=== PATIENT | male | born 1950 | race Caucasian/White ===

== ENCOUNTER 2020-03-17 11:00 | Outpatient (RCR) | payer MEDICARE, OTHER, SELFPAY | END 2020-03-17 13:48 | disposition other institution (70) | LOC: HO.PT 11:00 | PROVIDERS: Visit Provider Physical Medicine & Rehabilitation | DX: G81.14 Spastic hemiplegia affecting left nondominant side (principal) | CPT/HCPCS: 97110; 97530 ==

== ENCOUNTER → 2021-09-26 07:53 | Outpatient (RCR) | payer MEDICARE, OTHER, SELFPAY | END | disposition home or self-care (01) | LOC: HO.OT 02-29 09:00 | PROVIDERS: Visit Provider Physical Medicine & Rehabilitation | DX: G81.14 Spastic hemiplegia affecting left nondominant side (principal) | CPT/HCPCS: 97110; 97535 ==

== ENCOUNTER 2023-11-16 08:51 | Emergency (ER) | payer MEDICARE, OTHER, SELFPAY ==
[2023-11-16 08:58] VITALS: BP 130/71; PULSE 90; RESP 19; TEMP 36.6; O2SAT 96; BMI 21.3
[2023-11-16 09:23] LABS: MANUAL DIFF FLAG NO
[2023-11-16 09:25] LABS: Basophils Absolute Auto 0.1 X10*3/uL (0.0-0.2); Basophils Percent Auto 1.1 % (0-2); Eosinophils Absolute Auto 0.2 X10*3/uL (0.0-0.4); Eosinophils Percent Auto 2.3 % (0-4); Hematocrit 38.8 % (42.0-52.0); Hemoglobin 13.3 g/dl (14.0-18.0); Imm Gran Abs Auto 0.01 X10*3/uL (0.00-0.03); Imm Gran Pct Auto 0.2 % (0.0-0.4); Lymphocytes Absolute Auto 2.1 X10*3/uL (1.2-4.9); Lymphocytes Percent Auto 32.6 % (20-40); Mean Corpuscular HGB Conc 34.3 g/dl (31.0-36.0); Mean Corpuscular Hemoglobin 30.5 pg (27.0-33.0); Mean Platelet Volume 10.3 fL (9.4-12.4); Monocytes Absolute Auto 0.6 X10*3/uL (0.1-1.2); Monocytes Percent Auto 9.2 % (2-11); Neutrophils Absolute Auto 3.5 x10*3/uL (2.0-8.3); Neutrophils Percent Auto 54.6 % (45-73); Platelet Count 222 X10*3/uL (160-400); Red Blood Count 4.36 X10*6/uL (4.60-5.80); Red Cell Distribution Width 12.8 % (11.0-16.0); White Blood Count 6.4 X10*3/uL (4.8-10.8)
[2023-11-16 09:52] LABS: COVID-19 Test Negative (Negative); IDNOW Serial# 58CA691E
--- NOTE | 2023-11-16 09:53 | ED.GENADULT ---
HPI - General Adult General Chief complaint: Psychiatric Symptoms Stated complaint: crisis needs to talk to someone Time Seen by Provider: 11/16/23 09:17 Source: patient Mode of arrival: ambulatory Limitations: no limitations History of Present Illness ED Provider: Junior REYNA HPI narrative: 73-year-old male history of CVA with left-sided hemiparesis and uses a cane for ambulation, nicotine dependence presents to the emergency department with anxiety, depression, suicidal thoughts with no particular plan ongoing for the past few weeks. Reports he has been having increasing anxiety and depression due to life stressors, has been having issues with his . He tells me he is addicted to cigarettes in his is trying to have him stop smoking, she does not give him cigarettes when he wants. He reports he has been more angry than usual. Denies hallucinations. Denies medical complaints. Denies chest pain, shortness of breath, nausea, vomiting, abdominal pain, headache, vision changes, fevers, chills, abdominal pain. No homicidal ideation Related Data Allergies Allergy/AdvReac Type Severity Reaction Status Date / Time No Known Allergies Allergy Verified 11/16/23 09:02 [No Known Allergies*] Review of Systems Review of Systems: Yes all other systems are reviewed and are negative PMFSH Past Medical History Attestation statement: The following information was validated with the patient. Source: old records reviewed and nursing notes reviewed Social History Social History Smoked in Last 30 Days: Yes Advance Directives: Yes Advance Directives on File: Yes Advance Directives Date on File: 02/25/20 Do you have a plan to hurt others: No Plan Physical Exam ED Vital Signs: Vital Signs - 24 hr 11/16/23 08:58 11/16/23 10:14 Temperature 98 F 98.3 F Pulse Rate 90 93 Respiratory Rate 19 20 Blood Pressure 130/71 127/67 Pulse Oximetry 96 97 Oxygen Delivery Method Room Air Room Air BMI result Body Mass Index 21.3 VSS Appearance: Alert.? Oriented X3.? No acute distress.? Head: Normocephalic, atraumatic, no step-offs or deformities Eyes: Pupils equal, round and reactive to light.? CVS: Normal heart rate and rhythm.? Pulses normal.? Respiratory: No respiratory distress.? Breath sounds normal.? Abdomen: Soft and nontender.? Skin: Skin warm and dry.? Normal skin color.? Normal skin turgor.? Extremities: No lower extremity edema.? No calf ttp. 5/5 strength to R UE and LE. Left sided UE and LE weakness (baseline) Neuro: Oriented X 3.? No motor deficit.? No sensory deficit. CN 2-12 intact Course Course Course Narrative: 11/16/23--1411--Observation care revealed the patient does not meet medical necessity for hospitalization. Final disposition discussed with the patient who verbalized understanding, cleared by CARE team for discharge home. Patient completed observation care at 1412, total time spent in observation care was 3 hours?and?45 minutes.? Reevaluation(s) Reevaluation #1: CBC unremarkable. Chemistry unremarkable. Ethanol negative. UA and UTOX pending. This time patient to be placed into physician observation to allow more time to be evaluated by care team. At time observation was started patient common cooperative no acute distress will continue to monitor Time: 10:25 Medications Administered Discontinued Medications Generic Name Dose Route Start Last Admin Trade Name Freq PRN Reason Stop Dose Admin Nicotine 14 mg 11/16/23 09:54 11/16/23 10:12 Nicotine 14 Mg Patch.Td24 TRANSDERMA 11/16/23 09:55 14 mg ONCE ONE Administration Medical Decision Making Medical Decision Making [facility] Narrative: 0950 73 year old male presents w/ depression, anxiety and SI w/o specific plan PE - 5/5 strength to R UE and LE. Left sided UE and LE weakness (baseline) Hx and Pe concerning for anxiety, depression, w/ suicidal thoughts. Unlikely metabolic derangements. Plan- labs, urine, ethanol, valentine Differential Diagnosis Differential Diagnoses: The differential diagnosis associated with the presentation includes Hx and Pe concerning for anxiety, depression, w/ suicidal thoughts. Unlikely metabolic derangements. Admission/Observation Consideration of admission/observation: Escalation of care including admission/observation considered Lab Data 11/16/23 09:18 11/16/23 09:18 Labs: Lab Results 11/16/23 11/16/23 Range/Units 09:18 09:51 WBC 6.4 (4.8-10.8) X10*3/uL RBC 4.36 L (4.60-5.80) X10*6/uL Hgb 13.3 L (14.0-18.0) g/dl Hct 38.8 L (42.0-52.0) % MCV 89.0 (80.0-98.0) fL MCH 30.5 (27.0-33.0) pg MCHC 34.3 (31.0-36.0) g/dl RDW 12.8 (11.0-16.0) % Plt Count 222 (160-400) X10*3/uL MPV 10.3 (9.4-12.4) fL Immature Gran % (Auto) 0.2 (0.0-0.4) % Neut % (Auto) 54.6 (45-73) % Lymph % (Auto) 32.6 (20-40) % Park % (Auto) 9.2 (2-11) % Eos % (Auto) 2.3 (0-4) % Baso % (Auto) 1.1 (0-2) % Lymph # (Auto) 2.1 (1.2-4.9) X10*3/uL Park # (Auto) 0.6 (0.1-1.2) X10*3/uL Eos # (Auto) 0.2 (0.0-0.4) X10*3/uL Baso # (Auto) 0.1 (0.0-0.2) X10*3/uL Abs Immat Gran (auto) 0.01 (0.00-0.03) X10*3/uL Absolute Neuts (auto) 3.5 (2.0-8.3) x10*3/uL Absolute Nucleated RBC 0.000 (0.0-0.012) X10*3/uL Nucleated RBC % (auto) 0.0 (0.0-0.2) /100WBC Sodium 140 (135-145) mmol/L Potassium 4.0 (3.3-5.1) mmol/L Chloride 106 (96-108) mmol/L Carbon Dioxide 25 (22-29) mmol/L Anion Gap 13 (12-20) BUN 13 (9-16) mg/dL Creatinine 1.02 (0.5-1.4) mg/dL Estim Creat Clear Calc 57.0 Estimated GFR > 60 Random Glucose 114 (60-115) mg/dL Calcium 9.3 (8.4-10.2) mg/dL Magnesium 1.9 (1.6-2.6) mg/dL Total Bilirubin 0.3 (0.0-1.0) mg/dL AST 22 (5-37) U/L ALT 31 (0-40) U/L Alkaline Phosphatase 74 (39-117) U/L Total Protein 6.9 (6.5-8.0) g/dL Albumin 4.0 (3.5-5.0) g/dL Urine Color Yellow Urine Appearance Clear Urine pH 6.0 (5.0-9.0) Ur Specific [place] 1.015 (1.005-1.025) Urine Protein Negative (Neg-Trace) mg/dL Urine Glucose (UA) Negative (Negative) mg/dL Urine Ketones Negative (Negative) mg/dL Urine Blood Negative (Negative) Urine Nitrite Negative (Negative) Ur Leukocyte Esterase Negative (Negative) Urine Opiates Screen POSITIVE H (Not Detect) Ur Buprenorphine Scrn Not Detected (Not Detect) ng/mL Ur Oxycodone Screen Positive H (Not Detect) ng/mL Urine Methadone Screen Not Detected (Not Detect) ng/mL Urine Fentanyl Screen Not Detected (Not Detect) Ur Barbiturates Screen Not Detected (Not Detect) Ur Phencyclidine Scrn Not Detected (Not Detect) Ur Amphetamines Screen Not Detected (Not Detect) U Benzodiazepines Scrn Not Detected (Not Detect) Urine Cocaine Screen Not Detected (Not Detect) U Marijuana (THC) Screen Not Detected (Not Detect) Ethyl Alcohol < 10 mg/dL COVID-19 (YADIRA) Negative (Negative) COVID-19 Clin Com See Note Critical Care Time Critical Care Time Critical Care Time: No Discharge Plan Discharge Clinical Impression: Depression, Acute anxiety Patient Disposition: Still a Patient Print Language: Scottish
[2023-11-16] MEDS: Nicotine 14 MG PATCH.TD24 TRANSDERMA (10:12)
[2023-11-16 10:14] VITALS: BP 127/67; PULSE 93; RESP 20; TEMP 36.8; O2SAT 97
[2023-11-16 10:21] LABS: Alanine Aminotransferase 31 U/L (0-40); Alkaline Phosphatase 74 U/L (39-117); Anion Gap 13 (12-20); Aspartate Amino Transferase 22 U/L (5-37); Bilirubin Total 0.3 mg/dL (0.0-1.0); Blood Urea Nitrogen 13 mg/dL (9-16); Calcium 9.3 mg/dL (8.4-10.2); Carbon Dioxide 25 mmol/L (22-29); Chloride 106 mmol/L (96-108); Estimated Glomerular Filt Rate > 60; Ethanol < 10 mg/dL; Glucose Random 114 mg/dL (60-115); Magnesium 1.9 mg/dL (1.6-2.6); Sodium 140 mmol/L (135-145); Total Protein 6.9 g/dL (6.5-8.0)
[2023-11-16 10:34] LABS: Appearance Urine Clear; Color Urine Yellow; Glucose Urine UA Negative (Negative); Leukocyte Esterase Urine Negative (Negative); Nitrite Urine Negative (Negative); Specific Gravity - Urine 1.015 (1.005-1.025); Urine Blood Negative (Negative); Urine Ketones Negative (Negative); Urine Protein Negative (Neg-Trace)
[2023-11-16 10:37] LABS: Amphetamine Screen Urine Not Detected (Not Detect); Barbiturates, Urine Not Detected (Not Detect); Benzodiazepines Screen Urine Not Detected (Not Detect); Buprenorphine Scr Not Detected (Not Detect); Cannabinoid Screen Urine Not Detected (Not Detect); Cocaine Screen Urine Not Detected (Not Detect); Fentanyl, urine Not Detected (Not Detect); Methadone Screen, Urine Not Detected (Not Detect); Opiate Screen Urine POSITIVE (Not Detect); Oxycodone Screen Urine Positive (Not Detect); Phencyclidine Screen Urine Not Detected (Not Detect)
--- NOTE | 2023-11-16 10:59 | PC.NURSE ---
patient ambulating independently with own walker from home, left sided deficits from previous stroke. changed into hospital attire, belongings list completed. patient only has own clothes, slippers, and handkerchief. awaiting care team.
--- NOTE | 2023-11-16 12:52 | PC.NURSE ---
multiple family members in to see patient - family did not know patient had left the house.
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
--- NOTE | 2023-11-16 17:16 | PC.NURSE ---
patient/family discharged w/out discharge paperwork and medications prior to discharge
== END 2023-11-16 14:00 | disposition home or self-care (01) ==
PROVIDERS: Physician Assistant; Emergency Provider Emergency Medicine; PCP Nurse Practitioner Family
DX: F32.A Depression, unspecified (principal); F41.9 Anxiety disorder, unspecified; R45.851 Suicidal ideations; I69.354 Hemiplegia and hemiparesis following cerebral infarction affecting left non-dominant side; F17.210 Nicotine dependence, cigarettes, uncomplicated; Z11.52 Encounter for screening for COVID-19
CPT/HCPCS: 80053; 80307; 81003; 83735; 85025; 87635; 99284; 99285; S9485

== ENCOUNTER 2023-12-11 10:59 | Outpatient (REF) | payer MEDICARE, OTHER, SELFPAY ==
--- NOTE | ~2023-12-11 | CT_ITS ---
EXAMINATION: CT CHEST WITHOUT CONTRAST CLINICAL INFORMATION: Scanned in error -no charge COMPARISON: Chest radiograph 10/14/2015 TECHNIQUE: Multidetector volumetric CT imaging of the chest was done. Axial MIP volume rendering provided. Sagittal and coronal reformatted images were obtained. This CT examination was performed using dose optimization techniques as appropriate, variously including the following: *Automated exposure control *Adjustment of mA and/or kV according to patient size (this includes techniques or standardized protocols for targeted exams where dose is matched to indication/reason for exam; i.e. extremities or head) *Use of iterative reconstruction technique DLP: 154 mGy-cm FINDINGS: LUNGS: Small amount of retained secretions along the right lateral wall of the trachea. Central airways are otherwise patent. Linear bibasilar atelectasis/scarring. No focal consolidation. 0.3 cm pulmonary micronodule in the anterior left upper lobe, 5:209. MEDIASTINUM: Heart is normal in size. No significant pericardial effusion. Thoracic aorta is nonaneurysmal with mild atherosclerosis. No mediastinal lymphadenopathy. CORONARY ARTERY CALCIFICATION: Mild coronary artery calcifications. PLEURA: There is no pleural effusion. No pleural mass or thickening. AXILLA: No lymphadenopathy. Mild bilateral gynecomastia. UPPER ABDOMEN: The visualized left kidney is atrophic. OSSEOUS STRUCTURES: No acute or suspicious osseous abnormality. Mild degenerative changes of the visualized spine. CT/CT chest wo IV con IMPRESSION: No acute pulmonary disease. Linear bibasilar atelectasis/scarring. 0.3 cm nodule in the anterior left upper lobe. No follow-up imaging is indicated in low risk patients. In high-risk patients, consider optional follow-up CT chest in 12 months. Fleischner guidelines were followed. Electronically signed by: Arpit Downs MD 03/17/2024 03:54 PM EDT
== END 2023-12-11 11:00 | disposition home or self-care (01) ==
LOC: HO.CT 10:59
PROVIDERS: PCP Nurse Practitioner Family; Visit Provider Psychiatry & Neurology Neurology
DX: Z13.89 Encounter for screening for other disorder (principal)
CPT/HCPCS: 71250

== ENCOUNTER 2023-12-12 11:20 | Outpatient (REF) | payer MEDICARE, OTHER, SELFPAY ==
--- NOTE | ~2023-12-12 | CT_ITS ---
CT head/brain wo IV con CLINICAL INFORMATION: Reason for Exam MULTIPLE CEREBRAL INFARCTIONS COMPARISON: 2017 TECHNIQUE: Department standard protocol. This CT examination was performed using dose optimization techniques as appropriate, variously including the following: *Automated exposure control *Adjustment of mA and/or kV according to patient size (this includes techniques or standardized protocols for targeted exams where dose is matched to indication/reason for exam; i.e. extremities or head) *Use of iterative reconstruction technique DLP: 772 mGy-cm FINDINGS: CEREBRAL HEMISPHERES: Redemonstration of encephalomalacia, atrophy involving the right frontoparietal region distribution of the right MCA sequela of an old infarct in the area involved has slightly progressed since last available CT from 2017. The left hemisphere and infratentorial structures are relatively spared. No CT evidence of new infarct. BRAIN PARENCHYMA: Normal aquino-white matter differentiation. SUBDURAL SPACE: No bleed. BASAL GANGLIA AND PINEAL GLAND: Unremarkable VENTRICLES: Symmetric and normal in size. CEREBELLUM AND BRAINSTEM: No space-occupying mass, hemorrhage or acute infarct. CEREBELLOPONTINE ANGLES: No lesion found. ORBITS: No intraorbital mass. VESSELS: Unremarkable SKULL BASE: Unremarkable INCLUDED SINUSES AT SKULL BASE: Clear SKULL AND SKIN: No fracture or bone lesion found. CT/CT head/brain wo IV con IMPRESSION: 1. Redemonstration of encephalomalacia, atrophy involving the right frontoparietal region distribution of the right MCA sequela of an old infarct, the area involved has slightly progressed since last available CT from 2016. 2. No CT evidence of new infarct. 3. No intracranial bleed.
== END 2023-12-12 11:21 | disposition home or self-care (01) ==
LOC: HO.CT 11:20
PROVIDERS: Visit Provider Psychiatry & Neurology Neurology
DX: I63.9 Cerebral infarction, unspecified (principal)
CPT/HCPCS: 70450

== ENCOUNTER 2025-03-24 12:06 | Outpatient (AMB) | payer BC, SELFPAY ==
--- OUTSIDE RECORDS SUMMARY | 2025-03-05 06:30 | XMS_ITS ---
Author Organization [facility] Address [address] [place] [address] Care Team Providers Care General Agent Name Role Phone Dmitriy THOMAS, Kelly Primary Care Provider Unavail able Kelly Hunt Unavailable [phone] REASON FOR VISIT no ppwrk Encounters Encounter Location Date Provider Diagnosis [address] [address] 03/05/2025 Kelly Hunt Plan Of Treatment No Information Progress Notes * Mike CASTLE EDOB:1950 (74 yo M)Acc No.[id number]:03/05/2025 Progress Notes Patient: Mike ZELAYA Provider: Luis Hunt DPM :1950 A ge:74 Y S ex:Male Date:03/05/2025 Address:[address] [place], [place] [id number] Pcp:Kelly Izaguirre NP Subjective: * Chief Complaints: * 1 . No ppwrk. * Medical History: Objective: * Vitals: Assessment: Plan: * Treatment: * Images: * The named appointment provid er may or may not be the originator of this progress note, and it is not deemed complete until electronically signed by the appointment provider. Sign off status: Pending * Provider: Luis Hunt DPM Date: Generated for Printi ng/Fadanyg/eTransmitting on: 03:33 PM EDT
--- NOTE | 2025-03-24 12:44 | A.OFFVIS_ITS ---
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 He was doing okay with no further seizures. He was having some headaches but has run out of his headache medicine. His blood pressure medicine has been stopped as he was not having high blood pressure anymore. No recent falls. [facility] Medical History (Updated 03/24/25 @ 12:53 by Christina Mc MD) Migraine Seizure disorder Depression Insomnia Intracranial vascular stenosis Left hemiparesis Retroperitoneal fibrosis Multiple cerebral infarctions Social History Advance Directives Date on File: 02/25/20 Review of Systems Const Reports as per HPI Physical Exam Neuro Other: Mental Status: Alert and awake with normal spontaneity and fluency of speech. Affect is flexor. Cranial Nerves: CN II: Visual mariscal full to confrontation, visual acuity intact. CN III, IV, : Pupils equal, round, reactive to light and accommodation. Extraocular movements are normal. CN V: Facial sensation is normal. CN VII: Facial movements symmetrical. CN VIII: Hearing intact to bedside conversation is normal. CN IX, X: Palate elevates symmetrically. CN XI: Shoulder shrug and head turn symmetrical. CN XII: Tongue midline without atrophy or fasciculations. Left hemiparetic gait. Extrapyramidal: Full facial expressions and blinking. No rigidity. Movements are appropriate with no tremor or abnormality. Speech: Normal; no dysarthria or tremor. Assessment & Plan Assessment & Plan (1) Multiple cerebral infarctions: Comment: Meds tried for headache: Depakote CT brain WO at [facility] in November 2023: Large MCA area encephalomalacia, no bleed. EEG in November 2016: slow CT brain WO at [facility] in May 2016: large right MCA infarct CT brain WO at [facility] in September 2015: limited due to motion artifiact MRI brain WO at [facility] in September 2015: acute patchy right post parietal infarct, multiple bilateral chronic small infarcts MRA brain at [facility] in September 2015: limited due to motion artifacts but suggestive of diffuse intracranial atherosclerotic disease NICS at [facility] in September 2015: [place] Ech[place]ogram at [facility] in September 2015: [place]. Code(s): I63.9 - Cerebral infarction, unspecified Category: Medical (2) Seizure disorder: Code(s): G40.909 - Epilepsy, unspecified, not intractable, without status epilepticus Category: Medical (3) Depression: Code(s): F32.A - Depression, unspecified Category: Medical Qualifiers: Depression Type: other depression Qualified Code(s): F32.89 - Other specified depressive episodes (4) Migraine: Code(s): G43.909 - Migraine, unspecified, not intractable, without status migrainosus Category: Medical Qualifiers: Intractability: not intractable Migraine type: without aura Status migrainosus presence: without status migrainosus Qualified Code(s): G43.009 - Migraine without aura, not intractable, without status migrainosus Plan Impression: 1. Multiple cerebral ischemic infarctions 2. Left hemiparesis 3. Vascular dementia 4. Seizure disorder from strokes 5. Migraine without aura 6. Depression Recommendations: 1. Levetiracetam 750 mg 1 twice a day 2. Sertraline 100 mg in the morning 3. Topiramate 50 mg at bedtime for headaches 4. Baby aspirin daily Medications: Refilled topiramate 50 mg PO DAILY 90 tabs 1RF 90 days sertraline 100 mg PO DAILY 90 tabs 1RF levetiracetam 750 mg PO BID 180 tabs 1RF Coding Level of Care Code Est Pt Level 4 (06129) Diagnoses Multiple cerebral infarctions I63.9 Seizure disorder G40.909 Other depression F32.89 Depression Type: other depression Migraine without aura and without status migrainosus, not intractable G43.009 Intractability: not intractable Migraine type: without aura Status migrainosus presence: without status migrainosus
--- OUTSIDE RECORDS SUMMARY | 2025-03-24 15:34 | XMS_ITS | Patient Health Record ---
Author Organization [facility] Address [address] [place] [address] Care Team Providers Care Medicaid Billing Clerk Name Role Phone Dmitriy THOMAS, Kelly Primary Care Provider Unavail able TalhaKelly fuller Unavailable [phone] LulRafael scott Unavailable [phone] Allergies No Known Allergies Reason For Referral No Information Medications Medication SIG (Take, Route, Frequency, Duration) Notes Start Date End Date Status Sertraline HCl 50 MG Oral; Duration: 90 Active oxyCODONE HCl 10 MG Oral; Duration: 28 Active levETIRAcetam 750 MG Oral; Duration: 90 Active Lisinopril 5 MG Oral; Duration: 90 Active Clopidogrel Bisulfate 75 MG Oral; Duration: 90 Active Baby Aspirin Active Atorvastatin Calcium 20 MG Oral; Duration: 90 Active Social History Tobacco Use: Social History Observation Description Date Details (start date - stop date) Never Smoker NA - NA Tobacco Use/Smoking Question Answer Notes Are you a: nonsmoker Additional Findings: Tobacco Non-User Ex-cigaret te smoker Alcohol Screen Question Answer Notes Did you have a drink containing alcohol in the p ast year? No Points 0 Interpretation Negative Tobacco use other than smoking: Question Answer Notes Are you an other tobacco user? No Problems Problem Type SNOMED Code ICD Code Onset Dates Problem Status W/U Status Risk Notes Problem Bilateral atherosclerosis of arteries of lower limbs (disorder) (29490200540976818 ) Unspecified atherosclerosis of [place] arteries of extremities, bilateral legs (I70.203) Active confirmed Problem Acquired hammer toe of right foot (5896769704016549) Other hammer toe(s) (acquired), right foot (M20.41) Active confirmed Problem Acquired hammer toe of left foot ([id number]) Other hammer toe(s) (acquired), left foot (M20.42) Active confirmed Encounters Encounter Location Date Provider Diagnosis [facility] [address] [place] [address] 12/22/2024 Rafael Mccarty [facility] [address] [place] [address] 02/26/2025 Kelly Hunt Plan Of Treatment Pending Test Test Name Order Date [id number] SKIN LESIONS, 2 TO 4 11/02/19 20 [id number] SKIN LESIONS, 2 TO 4 02/10/20 20 [id number] SKIN LESIONS, 2 TO 4 06/08/19 21 Insurance Providers Payer Name Payer Address Payer Phone Subscriber Number Group Number Insured Name Patient Relationship to Insured Coverage Start Date Coverage End Date Medicare [employer] [address] [place] [address] [id number] Mike Mitchell Self - patient is the insured Medical (General) History Medical History History ICD Code Cataracts Epilepsy Chicken pox Depression Measles Paralysis Stroke Surgical History Surgery Date(Month/Year)
== END 2025-03-24 12:58 | disposition home or self-care (01) ==
LOC: HO.HSM 12:06
PROVIDERS: PCP Nurse Practitioner Family; Visit Provider Psychiatry & Neurology Neurology
DX: I63.9 Cerebral infarction, unspecified (principal); G40.909 Epilepsy, unspecified, not intractable, without status epilepticus; F32.89 Other specified depressive episodes; G43.009 Migraine without aura, not intractable, without status migrainosus
CPT/HCPCS: 99214